=== PATIENT | female | born 1960 | race Asian ===

== ENCOUNTER 2023-12-09 10:33 | Outpatient (OUT) | payer OTHER, SELFPAY ==
--- NOTE | 2023-12-09 10:41 | MM_ITS ---
Patient Name: BRYNN BHATIA MR#: [id number] : 1960 Exam Date: 12/09/2023 Ordering Doctor: DR TOMÁS MAJOR M.D. RADIOLOGY REPORT PROCEDURE: MM TOMOSYNTHESIS SCREENING BI COMPARISON: MG MAMM SCREEN 3D HAILEY CAD, 03/13/2021. MG MAMM SCREEN HAILEY W CAD, 02/13/2018. MG MAMM SCREEN HAILEY W CAD, 02/09/2017. MG MAMM HAILEY SCRN W CAD DIG, 02/01/2014. INDICATIONS: screening Calculator Name NCI Breast Cancer Risk Assessment Tool 5 Year Breast Cancer Risk 1.10% Lifetime Breast Cancer Risk 3.90% Personal Breast Cancer No Personal Ovarian Cancer No Treatments Complete hysterectomy Family Cancers None LOCATION: [facility] BREAST COMPOSITION: Scattered areas fibroglandular density. FINDINGS: DIAGNOSTIC CATEGORY 1--NEGATIVE. RIGHT BREAST: No significant suspicious finding. No significant change has occurred. LEFT BREAST: No significant suspicious finding. No significant change has occurred. RECOMMENDATIONS: ROUTINE MAMMOGRAM AND CLINICAL EVALUATION IN 12 MONTHS. PLEASE NOTE: A NORMAL MAMMOGRAM DOES NOT EXCLUDE THE POSSIBILITY OF BREAST CANCER. A CLINICALLY SUSPICIOUS PALPABLE LUMP SHOULD BE BIOPSIED. Dictated by: Rajan Galeano M.D. on 12/09/2023 at 14:21 Approved by: Rajan Galeano M.D. on 12/09/2023 at 14:23
== END 2023-12-09 10:34 | disposition home or self-care (01) ==
LOC: MAMMO 10:36
PROVIDERS: PCP Family Medicine; Visit Provider Family Medicine
DX: Z12.31 Encounter for screening mammogram for malignant neoplasm of breast (principal)
CPT/HCPCS: 77063; 77067

== ENCOUNTER 2025-04-23 11:05 | Outpatient (OUT) | payer OTHER, SELFPAY ==
--- OUTSIDE RECORDS SUMMARY | 2025-04-23 11:09 | XMS_ITS | Clinical Summary ---
Author Organization [facility] Address [address] [place] [address] Care Team Providers Care Benefit Authorizer Name Role Phone Galen Major MD Primary Care Provider [phone] Medications atorvastatin (Lipitor) 20 MG tabletIndications:Pure hypercholesterolemia Take 1 tablet (20 mg) by mouth 1 (one) time each day at the same time 30 tablet 04/19/20 25 Active atorvastatin (Lipitor) 20 MG tabletIndications:Pure hypercholesterolemia Take 1 tablet (20 mg) by mouth 1 (one) time each day at the same time 100 tablet 04/11/20 24 025 Discontin ued(Reord er) Encounters Date Type Department Care Team Description 04/19/2025 Telephone [facility] [address] [facility] [address] [place] [address] Galen Major MD Med Refill from Last 3 Months Social History Tobacco Use Types Packs/Day Years Used Date Smoking Tobacco: Never Assessed Comments Unknown Sex and Gender Information Value Date Recorded Sex Assigned at Not on file Legal Sex Female 6:55 PM EDT Gender Identity Not on file Sexual Orientation Not on file Last Filed Vital Signs Vital Sign Reading Time Taken Comments Blood Pressure 130/82 07/20/2022 12:00 PM EDT Pulse - - Temperature - - Respiratory Rate - - Oxygen Saturation - - Inhaled Oxygen Concentration - - Weight 54.7 kg (120 lb 9.6 oz) 07/20/2022 12:00 PM EDT Height 160 cm (5' 3 ) 07/20/2022 12:00 PM EDT Body Mass Index 21.36 07/20/2022 12:00 PM EDT Plan of Treatment Upcoming Encounters Date Type Department Care Team (Late st Contact Info) Description 05/07/2025 1:30 PM EDT Office Visit [facility] [address] [facility] [address] [place] [address] Galen Major MD 112 [facility] [address] [place] [address] Health Maintenance Due Date Last Done Comments CT Colonography 1960 Colonoscopy 1960 FIT 1960 FOBT 1960 Sigmoidoscopy 1960 Mammogram 12/09/2024 12/09/2023, 02/22, 02/13/2018, Additional history exists Colorectal Cancer Screening 06/16/2026 FIT-DNA 06/16/2026 06/16/2023, 04/24, 05/21/2020 Pneumococcal Vaccine: 65+ Years Completed Influenza Vaccine Completed 10/03/2024, 10/15/2023 Procedures Procedure Name Priority Date/Time Associated Diagnosis Comments MM TOMOSYNTHESIS SCREENING BI 12/09/2023 2:23 PM EST LAB COLOGUARD COLON CANCER SCREEN Routine 06/16/2023 2:40 AM EDT Screening for malignant neoplasm of colon from Last 3 Months or Most Recently Relevant to Health Maintenance Results * MM TOMOSYNTHESIS SCREENING BI (12/09/2023 2:23 PM EST) Anatomical Region Laterality Modality Other 12/09/2023 2:23 PM EST Narrative 12/09/2023 2:24 PM EST The [address] [address] Mammography Report Signed Patient: IVONE BHATIA MR#: [id number] : 1960 Acct:[id number] Age/Sex: 63 / F ADM Date: 12/09/23 Loc: MAMMO Attending Dr: GALEN MAJOR Ordering Physician: GALEN MAJOR Results: Date of Service: 12/09/23 Follow Up: Procedure(s): MM tomosynthesis screening BI Accession Number(s): [id number] cc: GALEN MAJOR Patient Name: IVONE BHATIA MR#: [id number] : 1960 Exam Date: 12/09/2023 Ordering Doctor: DR GALEN MAJOR M.D. RADIOLOGY REPORT PROCEDURE: MM TOMOSYNTHESIS SCREENING BI COMPARISON: MG MAMM SCREEN 3D HAILEY CAD, 03/13/2021. MG MAMM SCREEN HAILEY W CAD, 02/13/2018. MG MAMM SCREEN HAILEY W CAD, 02/09/2017. MG MAMM HAILEY SCRN W CAD DIG, 02/01/2014. INDICATIONS: screening Calculator Name NCI Breast Cancer Risk Assessment Tool 5 Year Breast Cancer Risk 1.10% Lifetime Breast Cancer Risk 3.90% Personal Breast Cancer No Personal Ovarian Cancer No Treatments Complete hysterectomy Family Cancers None LOCATION: [facility] BREAST COMPOSITION: Scattered areas fibroglandular density. FINDINGS: DIAGNOSTIC CATEGORY 1--NEGATIVE. RIGHT BREAST: No significant suspicious finding. No significant change has occurred. LEFT BREAST: No significant suspicious finding. No significant change has occurred. RECOMMENDATIONS: ROUTINE MAMMOGRAM AND CLINICAL EVALUATION IN 12 MONTHS. PLEASE NOTE: A NORMAL MAMMOGRAM DOES NOT EXCLUDE THE POSSIBILITY OF BREAST CANCER. A CLINICALLY SUSPICIOUS PALPABLE LUMP SHOULD BE BIOPSIED. Dictated by: Rajan Galeano M.D. on 12/09/2023 at 14:21 Approved by: Rajan Galeano M.D. on 12/09/2023 at 14:23 Dictated By: Rajan Galeano M.D. 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 RADIOLOGY REPORT PROCEDURE: MM TOMOSYNTHESIS SCREENING BI COMPARISON: MG MAMM SCREEN 3D HAILEY CAD, 03/13/2021. MG MAMM SCREEN BILW CAD, 02/13/2018. MG MAMM SCREEN HAILEY W CAD, 02/09/2017. MG MAMM HA[place]LEY SCRN WCAD DIG, 02/01/2014. INDICATIONS: screening Calculator Name NCI Breast Cancer Risk Assessment Tool 5 Year Breast Cancer Risk 1.10% Lifetime Breast Cancer Risk 3.90% Personal Breast Cancer No Personal Ovarian Cancer No Treatments Complete hysterectomy Family Cancers None LOCATION: [facility] BREAST COMPOSITION: Scattered areas fibroglandular density. FINDINGS: DIAGNOSTIC CATEGORY 1--NEGATIVE. RIGHT BREAST: No significant suspicious finding. No significant changehas occurred. LEFT BREAST: No significant suspicious finding. No significant changehas occurred. RECOMMENDATIONS: ROUTINE MAMMOGRAM AND CLINICAL EVALUATION IN 12 MONTHS. PLEASE NOTE: A NORMAL MAMMOGRAM DOES NOT EXCLUDE THE POSSIBILITY OFBREAST CANCER. A CLINICALLY SUSPICIOUS PALPABLE LUMP SHOULD BE BIOPSIED. Dictated by: Rajan Galeano M.D. on 12/09/2023 at 14:21 Approved by: Rajan Galeano M.D. on 12/09/2023 at 14:23 Dictated By: Rajan Galeano M.D. 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 colon cancer screening (06/16/2023 2:40 AM EDT) NONINV COLON CA DNA+OCC BLD SCRN STL-IMP Negative Negative 06/24/2023 11:58 AM EDT [facility] (CLIA #:[id number]) Comment: NEGATIVE TEST RESULT. A negative Cologuard result indicates a low likelihood that a colorectal cancer (CRC) or advanced adenoma (adenomatous polyps with more advanced pre-malignant features) is present. The chance that a person with a negative Cologuard test has a colorectal cancer is less than 1 in 1500 (negative predictive value >99.9%) or has an advanced adenoma is less than 5.3% (negative predictive value 94.7%). These data are based on a prospective cross-sectional study of 10,000 individuals at average risk for colorectal cancer who were screened with both Cologuard and colonoscopy. (Caryl Perkins al, N Engl J Med 2014;370(14):0977-1417) The normal value (reference range) for this assay is negative. COLOGUARD RE-SCREENING RECOMMENDATION: Periodic colorectal cancer screening is an important part of preventive healthcare for asymptomatic individuals at average risk for colorectal cancer. Following a negative Cologuard result, the [place] Cancer Society and U.S. Multi-Society Task Force screening guidelines recommend a Cologuard re-screening interval of 3 years. References: [place] Cancer Society Guideline for Colorectal Cancer Screening: https://www.cancer.org/cancer/jsjhl-pmmgql-ueedok/qjlfchqhs-zpagpmhvm-txldclg/ac s-rec ommendations.html.; Dakota DK, Kathy CR, Andrew WeemsK, Colorectal Cancer Screening: Recommendations for Physicians and Patients from the U.S. Multi-Society Task Force on Colorectal Cancer Screening , Am J Gastroenterology 2017; 112:6875-1101. TEST DESCRIPTION: Composite algorithmic analysis of stool DNA-biomarkers with hemoglobin immunoassay. Quantitative values of individual biomarkers are not reportable and are not associated with individual biomarker result reference ranges. Cologuard is intended for colorectal cancer screening of adults of either sex, 45 years or older, who are at average-risk for colorectal cancer (CRC). Cologuard has been approved for use by the U.S. FDA. The performance of Cologuard was established in a cross sectional study of average-risk adults aged 50-84. Cologuard performance in patients ages 45 to 49 years was estimated by sub-group analysis of near-age groups. Colonoscopies performed for a positive result may find as the most clinically significant lesion: colorectal cancer [4.0%], advanced adenoma (including sessile serrated polyps greater than or equal to 1cm diameter) [20%] or non- advanced adenoma [31%]; or no colorectal neoplasia [45%]. These estimates are derived from a prospective cross-sectional screening study of 10,000 individuals at average risk for colorectal cancer who were screened with both Cologuard and colonoscopy. (Caryl Perkins al, N Engl J Med 2014;370(14):7012-5587.) Cologuard may produce a false negative or false positive result (no colorectal cancer or precancerous polyp present at colonoscopy follow up). A negative Cologuard test result does not guarantee the absence of CRC or advanced adenoma (pre-cancer). The current Cologuard screening interval is every 3 years. ([place] Cancer Society and U.S. Multi-Society Task Force). Cologuard performance data in a 10,000 patient pivotal study using colonoscopy as the reference method can be accessed at the following location: www.Mailpile.Mplife.com/results. Additional description of the Cologuard test process, warnings and precautions can be found at www.cologuard.com. Stool specimen (specimen) 06/16/2023 2:40 AM EDT 06/17/2023 5:29 PM EDT Galen Major MD LAB MOLECULAR DIAGNOSTICS ORDERA BLES Final Result .[email or web address] (CLIA #:[id number]) [address] [phone], [facility] (CLIA #:[id number]) [address] [phone] from Last 3 Months or Most Recently Relevant to Health Maintenance Care Teams Benefit Authorizer Relationship Specialty Start Date End Date Galen Major MD [address] [place] [address] PCP - General Family Medicine 03/01/23
--- OUTSIDE RECORDS SUMMARY | 2025-04-23 11:09 | XMS_ITS | Encounter Summary ---
Author Organization [facility] Address [address] [place] [address] Care Team Providers Care Secretary Of State Name Role Phone Galen Robles MD Primary Care Provider [phone] Reason for Visit * Reason Onset Date Comments Med Refill 04/19/2025 Encounter Details Date Type Department Care Team ([facility] Contact Info) Description 04/19/2025 Telephone [facility] [address] [facility] [address] [place] [phone] Galen Robles MD [address] [facility] [address] [place], [place] [id number] Med Refill Social History Tobacco Use Types Packs/Day Years Used Date Smoking Tobacco: Never Assessed Comments Unknown Sex and Gender Information Value Date Recorded Sex Assigned at Not on file Legal Sex Female 6:55 PM EDT Gender Identity Not on file Sexual Orientation Not on file documented as of this encounter Miscellaneous Notes * Telephone Encounter - Carmelina Ventura - 04/19/2025 8:20 AM EDT atorvastatin (Lipitor) 20 MG tablet [facility] - [place], [place] - [address] documented in this encounter Plan of Treatment Upcoming Encounters Date Type Department Care Team ([facility] Contact Info) Description 05/07/2025 1:30 PM EDT Office Visit [facility] [address] [facility] [address] [place] [address] Galen Robles MD [address] [facility] [address] [place] [address] documented as of this encounter Visit Diagnoses Diagnosis Pure hypercholesterolemia Pure hypercholesterolemia documented in this encounter Care Teams Secretary Of State Relationship Specialty Start Date End Date Galen Robles MD 112 [facility] [address] [place], [place] [id number] PCP - General Family Medicine 03/01/23 documented as of this encounter
--- NOTE | 2025-04-23 11:13 | MM_ITS ---
Patient Name: BRYNN BHATIA MR#: [id number] : 1960 Exam Date: 04/23/2025 Ordering Doctor: DR TOMÁS MAJOR M.D. RADIOLOGY REPORT PROCEDURE: MM TOMOSYNTHESIS SCREENING BI COMPARISON: MM TOMOSYNTHESIS SCREENING BI, 12/09/2023. MG MAMM SCREEN 3D HAILEY CAD, 03/13/2021. MG MAMM SCREEN HAILEY W CAD, 02/13/2018. MG MAMM [place] SCRN W CAD DIG, 02/01/2014. INDICATIONS: Screening Calculator Name NCI Breast Cancer Risk Assessment Tool 5 Year Breast Cancer Risk 1.10% Lifetime Breast Cancer Risk 3.70% Personal Breast Cancer No Personal Ovarian Cancer No Treatments Complete hysterectomy Family Cancers None LOCATION: [facility] BREAST COMPOSITION: There are scattered areas of fibroglandular density. FINDINGS: DIAGNOSTIC CATEGORY 1--NEGATIVE. RIGHT BREAST: No significant suspicious finding. LEFT BREAST: No significant suspicious finding. RECOMMENDATIONS: ROUTINE MAMMOGRAM AND CLINICAL EVALUATION IN 12 MONTHS. PLEASE NOTE: A NORMAL MAMMOGRAM DOES NOT EXCLUDE THE POSSIBILITY OF BREAST CANCER. A CLINICALLY SUSPICIOUS PALPABLE LUMP SHOULD BE BIOPSIED. Dictated by: Cory Ng DO on 04/23/2025 at 15:34 Approved by: Cory Ng DO on 04/23/2025 at 15:35
== END 2025-04-23 11:06 | disposition home or self-care (01) ==
PROVIDERS: PCP Family Medicine; Visit Provider Family Medicine
DX: Z12.31 Encounter for screening mammogram for malignant neoplasm of breast (principal)
CPT/HCPCS: 77063; 77067